=== PATIENT | female | born 2000 | race Caucasian/White ===

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

== ENCOUNTER 2021-05-15 14:39 | Emergency (ER) | payer SELFPAY | END 2021-05-15 16:00 | disposition left against medical advice (07) | LOC: ER 14:39 | DX: R51.9 Headache, unspecified (principal); R42 Dizziness and giddiness; R53.83 Other fatigue; Z53.21 Procedure and treatment not carried out due to patient leaving prior to being seen by health care provider ==

== ENCOUNTER 2021-09-01 04:20 | Emergency (ER) | payer BC ==
[~2021-09-01] VITALS: Ht 162.6 cm; Wt 88.2 kg
--- NOTE | 2021-09-01 04:44 | EKG ---
[address] [address] Test Date: 2021-09-01 Test Time: 04:36:01 Pat Name: ORTIZ MONTANEZ Department: Room: Gender: F Pst Manager: RAGHAV : 2000 Requested By: JONA GIBSON Order Number: [id number] Reading MD: Alvin Hillman Measurements Intervals [place] Rate: 217 P: SC: QRS: 73 QRSD: 62 T: -90 QT: 268 QTc: 515 Interpretive Statements SUPRAVENTRICULAR TACHYCARDIA ST ABNORMALITY, POSSIBLE INFERIOR SUBENDOCARDIAL INJURY ABNORMAL ECG RI6.02 No previous ECG available for comparison Electronically Signed On 09-01-2021 8:50:36 CDT by Alvin Hillman
[2021-09-01] MEDS ORDERED: IV NORMAL SALINE 1,000ML 1,000 ML IV ONE (04:45)
[2021-09-01] MEDS ORDERED: ADENOSINE 6 MG/2 ML VIAL IV ONE ×2 (04:45→06:30)
[2021-09-01 04:57] LABS: BASO # 0.2 x10^3/uL (0.0-0.2); BASO % 1 % (0-3); EOS # 0.3 x10^3/uL (0.0-0.7); EOS % 2 % (0-3); HEMATOCRIT 47.4 % (36.0-47.0); HEMOGLOBIN 15.7 g/dL (12.0-15.5); LYMPH # 3.6 x10^3/uL (1.0-4.8); LYMPH % 23 % (24-48); MEAN CORPUSCULAR HEMOGLOBIN 30 pg (25-35); MEAN CORPUSCULAR HGB CONC 33 g/dL (31-37); MEAN CORPUSCULAR VOLUME 90 fL (79-100); MONO # 0.8 x10^3/uL (0.0-1.1); MONO % 5 % (0-9); NEUT % 70 % (31-73); PLATELET COUNT 294 x10^3/uL (140-400); RED BLOOD COUNT 5.27 x10^6/uL (3.50-5.40); RED CELL DISTRIBUTION WIDTH 13.7 % (11.5-14.5); WHITE BLOOD COUNT 15.9 x10^3/uL (4.0-11.0)
--- NOTE | 2021-09-01 04:59 | PHYS DOC ---
General Adult EDM: Chief Complaint: RAPID HEART RATE HPI: HPI: 21-year-old female presents via private vehicle heart rate over 200. The patient tells me that she has had this since she was 13. She states that it has happened on and off. She denies ever getting adenosine. She states that usually she takes long deep breaths and it will go away. She thinks this started around 9 PM and just would not go away so she came into the emergency room. Patient denies fever or chills. She has never had official diagnosis of why this occurs. She has not seen a hrbp in some time. (JONA GIBSON DO) Review of Systems: Review of Systems: Constitutional: Denies fever or chills Eyes: Denies change in visual acuity HENT: Denies nasal congestion or sore throat Respiratory: Denies cough or shortness of breath Cardiovascular: chest pain, SVT GI: Denies abdominal pain, nausea, vomiting, bloody stools or diarrhea : Denies dysuria Musculoskeletal: Denies back pain or joint pain Integument: Denies rash Neurologic: Denies headache, focal weakness or sensory changes Endocrine: Denies polyuria or polydipsia Lymphatic: Denies swollen glands Psychiatric: Denies depression or anxiety (JONA GIBSON DO) Current Medications: Current Meds: Current Medications Medications (Trade) Dose Ordered Sig/Salas Start Time Stop Time Status Last Admin Dose Admin Adenosine (Adenocard) 12 mg 1X ONCE 09/01/21 04:45 09/01/21 04:47 DC 09/01/21 04:51 12 MG Sodium Chloride 1,000 ml @ 1,000 mls/hr 1X ONCE 09/01/21 04:45 09/01/21 05:44 09/01/21 04:45 1,000 MLS/HR (JONA GIBSON DO) Allergies: Allergies: Allergies Coded Allergies Type Severity Reaction Last Updated Verified No Known Drug Allergies 09/01/21 No (JONA GIBSON DO) Physical Exam: PE: Constitutional: Well developed, well nourished, no acute distress, non-toxic appearance. [] HENT: Normocephalic, atraumatic, bilateral external ears normal, oropharynx moist, no oral exudates, nose normal. [] Eyes: PERRLA, EOMI, conjunctiva normal, no discharge. [] Neck: Normal range of motion, no tenderness, supple, no stridor. [] Cardiovascular: Heart rate 217, regular rhythm, no murmur [] Lungs & Thorax: Bilateral breath sounds clear to auscultation [] Abdomen: Bowel sounds normal, soft, no tenderness, no masses, no pulsatile masses. [] Skin: Warm, dry, no erythema, no rash. [] Back: No tenderness, no CVA tenderness. [] Extremities: No tenderness, no cyanosis, no clubbing, ROM intact, no edema. [] Neurologic: Alert and oriented X 3, normal motor function, normal sensory function, no focal deficits noted. [] Psychologic: Affect normal, judgement normal, mood normal. [] (JONA GIBSON DO) EKG: EKG: Regular rhythm, rate 217, axis, significant ST elevation, ST depression the 3 through V6. SVT [] (JONA GIBSON DO) Radiology/Procedures: Radiology/Procedures: [] Impressions: Study: XR CHEST 1V Indication: Supraventricular tachycardia. Comparison: None. Findings: The cardiomediastinal silhouette and louise are within normal limits. No localized airspace opacity, pleural effusion or pneumothorax. Impression: No acute radiographic abnormality of the chest. Electronically signed by: MAMADOU CUELLAR MD (09/01/2021 5:07 AM) [facility] DICTATED AND SIGNED BY: MAMADOU CUELLAR MD DATE: 09/01/21 0507 CC: JONA GIBSON DO; PCP,NO ~ (JONA GIBSON DO) Heart Score: C/O Chest Pain: Yes HEART Score for Chest Pain: HEART Score for Chest Pain Response (Comments) Value History Slighlty/Non-Suspicious 0 ECG Nonspecific Repolarizatio 1 Age < 45 0 Risk Factors 1 or 2 Risk Factors 1 Troponin >3 x Normal Limit 2 Total 4 Risk Factors: Risk Factors: DM, Current or recent (<one month) smoker, HTN, HLP, family history of CAD, obesity. Risk Scores: Score 0 - 3: 2.5% MACE over next 6 weeks - Discharge Home Score 4 - 6: 20.3% MACE over next 6 weeks - Admit for Clinical Observation Score 7 - 10: 72.7% MACE over next 6 weeks - Early Invasive Strategies (JONA GIBSON DO) C/O Chest Pain: No HEART Score for Chest Pain: HEART Score for Chest Pain Response (Comments) Value History Slighlty/Non-Suspicious 0 ECG Nonspecific Repolarizatio 1 Age < 45 0 Risk Factors 1 or 2 Risk Factors 1 Troponin >3 x Normal Limit 2 Total 4 (CARMELO SCHAEFER MD) Course & Med Decision Making: Course & Med Decision Making Pertinent Labs and Imaging studies reviewed. (See chart for details) On arrival the patient did have a heart rate of 195-230. On the monitor appeared to be SVT. The patient's blood pressure was acceptable and she was stable. She was able to talk and answer questions. Vagal maneuvers were not successful. I decided to treat her with 12 mg of adenosine. Or verbally prepared the patient for this medication. She was given a single dose and her heart rate improved to limits. Repeat EKG shows sinus rhythm, rate 99, normal axis, no ST elevation. The patient's initial troponin is 510. I went in and discussed the patient with cardiology, and Dr. Mckee has recommended repeat troponin in 2 to 3 hours. As long as it is similar or lower in the patient feels good, she should be able to be discharged home. If the values significantly increases we will reevaluate at that time. Her other labs are unremarkable except for an elevated anion gap of 17 NS carbon dioxide of 20. Urinalysis and urine drug screen are pending. I am signing the patient out to dayshift at 0600. [] (JONA GIBSON DO) Course & Med Decision Making Accepted patient care at shift change, is in NSR and pending repeat troponin. Patient went back into SVT with a rate around 200, 12 mg of adenosine pushed at 0628 with pause and return to NSR. Post ECG shows a rate of 98, sinus rhythm, no other abnormalities. 8 minutes later patient went back into SVT. Attempted to 5 mg pushes of metoprolol without improvement. Switch to 10 mg of diltiazem with return to NSR, started on diltiazem drip and transferred to [facility] (CARMELO SCHAEFER MD) Dragon Disclaimer: Dragon Disclaimer: This electronic medical record was generated, in whole or in part, using a voice recognition dictation system. (JONA GIBSON DO) Departure Departure: Impression: Primary Impression: SVT (supraventricular tachycardia) Disposition: 02 SHORT TERM [facility]OSPITAL Condition: STABLE Referrals: PCP,NO (PCP) Patient Instructions: Supraventricular Tachycardia, [id number] JONA GIBSON DO Sep 01, 2021 04:58 CARMELO SCHAEFER MD Sep 01, 2021 07:58
[2021-09-01 05:02] LABS: CALCIUM 9.3 mg/dL (8.5-10.1); CREATININE 0.7 mg/dL (0.6-1.0); GFR 104.6; POTASSIUM 3.7 mmol/L (3.5-5.1)
[2021-09-01 05:08] LABS: ALBUMIN/GLOBULIN RATIO 1.3 (1.0-1.7); TOTAL BILIRUBIN 0.3 mg/dL (0.2-1.0); TOTAL PROTEIN 7.2 g/dL (6.4-8.2)
--- NOTE | 2021-09-01 05:10 | RAD ---
Study: XR CHEST 1V Indication: Supraventricular tachycardia. Comparison: None. Findings: The cardiomediastinal silhouette and louise are within normal limits. No localized airspace opacity, pl eural effusion or pneumothorax. Impression: No acute radiographic abnormality of the chest. Electronically signed by: MAMADOU CUELLAR MD (09/01/2021 5:07 AM) [facility]
[2021-09-01 05:21] LABS: % BANDS 4 % (0-9); % EOS 2 % (0-5); % LYMPHS 28 % (24-48); % MONOS 6 % (0-10); % SEGS 60 % (35-66); PLT ESTIMATE ADEQUATE (ADEQUATE)
[2021-09-01 05:55] LABS: BACTERIA,URINE 0 /HPF (0-FEW); CLARITY,URINE CLEAR; COLOR,URINE YELLOW; GLUCOSE,URINE NEG (NEG); NITRITE,URINE NEG (NEG); RBC,URINE 0 /HPF (0-2); SQUAMOUS EPITHELIAL CELL,UR MOD /LPF; UROBILINOGEN,URINE 0.2 mg/dL (0.2 mg/dL); WBC,URINE OCC /HPF (0-4)
[2021-09-01 05:56] LABS: BARBITURATES NEG (NEG); BENZODIAZEPINES NEG (NEG); CANNABINOIDS POS (NEG); COCAINE NEG (NEG); METHADONE NEG (NEG); OPIATES NEG (NEG); PHENCYCLIDINE NEG (NEG)
[2021-09-01 05:57] LABS: AMPHETAMINE/METHAMPHETAMINE NEG (NEG)
[2021-09-01] MEDS: METOPROLOL TARTRATE 5 MG/5 ML VIAL. IV PRN ×2 (06:45→06:54)
[2021-09-01] MEDS ORDERED: dilTIAZem 25 MG/5 ML VIAL IVP ONE (07:15)
[2021-09-01] MEDS ORDERED: IV NORMAL SALINE 100ML 100 ML ONE (07:27)
[2021-09-01] MEDS ORDERED: dilTIAZem VIAL 125 MG in IV NORMAL SALINE 100ML 100 ML IV PRN (07:30)
[2021-09-01 08:50] VITALS: BP 121/60
--- NOTE | 2021-09-01 19:37 | EKG ---
[address] [address] Test Date: 2021-09-01 Test Time: 04:50:03 Pat Name: ORTIZ MONTANEZ Department: Room: Gender: F Machine Fitter: RAGHAV : 2000 Requested By: JONA GIBSON Order Number: [id number] Reading MD: Alvin Hillman Measurements Intervals [place] Rate: 99 P: 42 [place]: 152 QRS: 64 QRSD: 70 T: 46 QT: 300 QTc: 390 Interpretive Statements SINUS RHYTHM Electronically Signed On 09-05-2021 18:48:43 CDT by Alvin Hillman
--- NOTE | 2021-09-02 19:45 | EKG ---
[address] [address] Test Date: 2021-09-01 Test Time: 06:30:53 Pat Name: ORTIZ MONTANEZ Department: Room: Gender: F Screen Vent Binder: RAGHAV : 2000 Requested By: CARMELO SCHAEFER Order Number: [id number] Reading MD: Alvin Hillman Measurements Intervals [place] Rate: 98 P: 56 [place]: 172 QRS: 62 QRSD: 72 T: 57 QT: 318 QTc: 408 Interpretive Statements SINUS RHYTHM Electronically Signed On 09-05-2021 18:48:34 CDT by Alvin Hillman
== END 2021-09-01 09:00 | disposition short-term general hospital (02) ==
LOC: ER 04:20
DX: I47.1 Supraventricular tachycardia (principal)
CPT/HCPCS: 36415; 71045; 80053; 80307; 81001; 81025; 84484; 85007; 85025; 93005; 96361; 96365; 96375; 96376; 99285; J0153; J3490; J7030